=== PATIENT | female | born 1960 | race Caucasian/White ===

== ENCOUNTER 2018-12-22 10:09 | Emergency (ER) | payer OTHER ==
[~2018-12-22] VITALS: Ht 157.5 cm; Wt 102.9 kg
[2018-12-22] MEDS ORDERED: BUPR1TAB56 (10:19)
[2018-12-22] MEDS ORDERED: ZOLP10TA2 (10:19)
[2018-12-22] MEDS ORDERED: MELO15TA28 (10:19)
[2018-12-22] MEDS ORDERED: LISI10TA4 (10:19)
[2018-12-22] MEDS ORDERED: OMEP-221 (10:19)
[2018-12-22] MEDS ORDERED: TRAM50TA2 (10:19)
[2018-12-22] MEDS ORDERED: HYDR25TAB (10:19)
[2018-12-22] MEDS ORDERED: ULTR50TA8 PO (13:17)
[2018-12-22 13:27] VITALS: BP 139/82
--- NOTE | 2018-12-22 13:28 | REP ---
LEFT KNEE SERIES, FIVE VIEWS: Five views of the left knee are performed. There is no acute fracture or dislocation. There is moderate medial joint space narrowing with subchondral sclerosis and spurring. There is mild patellofemoral compartment narrowing with subchondral sclerosis and spurring. Oval joint body is seen inferiorly on the lateral view just below the patellofemoral joint measuring 1.3 cm in maximum diameter. IMPRESSION: Degenerative changes without fracture or dislocation. Electronically Signed by Mayito Ramirez MD 12/23/2018 09:23 A
== END 2018-12-22 13:28 | disposition home or self-care (01) ==
LOC: M ED 10:09
DX: S83.402A Sprain of unspecified collateral ligament of left knee, initial encounter (principal); W54.1XXA Struck by dog, initial encounter; Y92.9 Unspecified place or not applicable; Y93.9 Activity, unspecified; M25.762 Osteophyte, left knee

== ENCOUNTER 2022-11-25 08:54 | Emergency (ER) | payer OTHER ==
[~2022-11-25] VITALS: Ht 157.5 cm; Wt 100.7 kg
[~2022-11-25 08:54] MED LIST: BUPR1TAB56; HYDR-3490; LISI10TA22; MELO15TA28; OMEP40CA5; TRAM50TA2; ULTR50TA8 PO; ZOLP10TA2
[2022-11-25] MEDS ORDERED: ALPR0.5T3 (09:07)
[2022-11-25] MEDS ORDERED: ACET-683 PO (09:07)
[2022-11-25 10:30] LABS: BASO % 0.3 % (0.0-1.0); EOS % 0.1 % (0.0-3.0); HEMOGLOBIN 13.3 g/dl (12.0-15.5); LYMPH # 1.9 10^3/uL (1.5-5.0); LYMPH % 17.9 % (24.0-44.0); MEAN CORPUSCULAR HEMOGLOBIN 28.7 pg (27.0-33.0); MEAN CORPUSCULAR HGB CONC 32.4 g/dl (32.0-36.5); MEAN CORPUSCULAR VOLUME 88.4 fl (80.0-96.0); MONO # 1.4 10^3/uL (0.0-0.8); MONO % 13.1 % (2.0-8.0); NEUTROPHILS # 7.2 10^3/uL (1.5-8.5); NEUTROPHILS % 68.3 % (36.0-66.0); PLATELET COUNT, AUTOMATED 296 10^3/uL (150-450); RED BLOOD COUNT 4.64 10^6/uL (4.00-5.40); WHITE BLOOD COUNT 10.5 10^3/uL (4.0-10.0)
[2022-11-25 10:54] LABS: ALBUMIN 3.2 G/DL (3.2-5.2); ALKALINE PHOSPHATASE 92 U/L (46-116); ALT/SGPT 13 U/L (7.0-40); AST/SGOT 13 U/L (<34); BILIRUBIN,TOTAL 0.4 MG/DL (0.3-1.2); BLOOD UREA NITROGEN 10 MG/DL (9-23); CALCIUM LEVEL 8.8 MG/DL (8.3-10.6); CARBON DIOXIDE LEVEL 30 MMOL/L (20-31); CHLORIDE LEVEL 101 MMOL/L (98-107); CREATININE FOR GFR 0.84 MG/DL (0.55-1.30); GLOMERULAR FILTRATION RATE > 60.0 (>45); GLUCOSE, FASTING 91 MG/DL (74-106); POTASSIUM SERUM 3.1 MMOL/L (3.5-5.1); SODIUM LEVEL 140 MMOL/L (136-145); TOTAL PROTEIN 6.8 G/DL (5.7-8.2)
[2022-11-25 11:14] LABS: RSV AMPLIFICATION NEGATIVE (NEGATIVE)
[2022-11-25] MEDS ORDERED: ACETAMINOPHEN TAB 650MG DOSE (2X325MG) PO ONE (11:45)
[2022-11-25] MEDS ORDERED: cefTRIAXone SOD 2 GM in D5W MINI-BAG PLUS 50 ML IV ONE (11:45)
[2022-11-25] MEDS ORDERED: POTASSIUM CHLORIDE 10MEQ SR TABLET PO ONE (12:25)
[2022-11-25] MEDS ORDERED: CEFD300C41 PO (13:10)
[2022-11-25 13:18] VITALS: BP 180/90
== END 2022-11-25 13:18 | disposition home or self-care (01) ==
LOC: M ED 08:54
DX: N10 Acute pyelonephritis (principal); I10 Essential (primary) hypertension; Z79.899 Other long term (current) drug therapy
CPT/HCPCS: 76775; 80053; 81001; 83605; 85025; 87040; 87088; 87186; 87631; 87880; 96365; 99283; J0696